=== PATIENT | female | born 1950 | race Hispanic/Latino ===

== ENCOUNTER 2016-10-29 23:43 | Inpatient (IN) | payer MEDICARE, OTHER ==
[2016-10-29 23:44] VITALS: BMI 52.1
[2016-10-30] MEDS ORDERED: Sodium Chloride 0.9% 1,000 ML IV ONE (00:54)
[2016-10-30] MEDS ORDERED: cefTRIAXone IV 1 gm in Dextros 50 ML IVPB ONE ×2 (00:54→01:18)
[2016-10-30 01:13] LABS: BASO % 0.5 % (0.0-2.0); MEAN PLATELET VOLUME 7.4 fL (7.2-11.7); MONO # 0.9 K/uL (0.0-0.8); RED CELL DISTRIBUTION WIDTH 13.4 % (11.5-14.5)
[2016-10-30 01:14] LABS: CHLORIDE 97 mmol/L (98-107)
[2016-10-30 01:15] LABS: SODIUM 134 mmol/L (132-148)
[2016-10-30 01:16] LABS: POTASSIUM 4.6 mmol/L (3.6-5.2)
[2016-10-30 01:17] LABS: BASO # 0.1 K/uL (0.0-0.2); EOS # 0.1 K/uL (0.0-0.7); EOS % 1.3 % (0.0-4.0); LYMPH # 2.8 K/uL (1.0-4.3); LYMPH % 28.7 % (20.0-40.0); MEAN CELL VOLUME 87.7 fL (81.0-99.0); MEAN CORPUSCULAR HEMOGLOBIN 29.8 pg (27.0-31.0); MONO % 9.3 % (0.0-10.0); NRBC % 0.2 % (0.0-2.0)
[2016-10-30 01:18] LABS: ALB/GLOB RATIO 0.9 (1.0-2.1); ALKALINE PHOSPHATASE 94 U/L (38-126); ALT/SGPT 25 U/L (9-52); AST/SGOT 21 U/L (14-36); BILIRUBIN,TOTAL 0.8 mg/dL (0.2-1.3); BLOOD UREA NITROGEN 41 mg/dL (7-17); CARBON DIOXIDE 22 mmol/L (22-30); GFR AFRICAN-AMERICAN > 60; GLUCOSE,RANDOM 195 mg/dL (65-105); TOTAL PROTEIN 6.8 g/dL (6.3-8.3)
[2016-10-30] MEDS ORDERED: Sodium Chloride 0.9% 1,000 ML ONE (01:18)
[2016-10-30 01:19] LABS: CALCIUM 8.3 mg/dl (8.6-10.4)
[2016-10-30 01:21] LABS: WHITE BLOOD COUNT 9.9 K/uL (4.8-10.8)
--- NOTE | 2016-10-30 01:37 | C.PDOC ---
History Of Present Illness 66 year old female presents to the ED with complaints of swelling and pain to the right lower extremity. Patient notes a history of cellulitis and denies fever or other complaints at this time. Chief Complaint (Nursing): Lower Extremity Problem/Injury History Per: Patient History/Exam Limitations: no limitations Onset/Duration Of Symptoms: Unknown Current Symptoms Are (Timing): Still Present Recent travel outside of the [place]: No Past Medical History Reviewed: Historical Data, Nursing Documentation, Vital Signs Vital Signs: Last Vital Signs Temp 97.6 F 10/29/16 23:59 Pulse 76 10/29/16 23:59 Resp 18 10/29/16 23:59 BP 121/76 10/29/16 23:59 Pulse Ox 96 10/30/16 01:41 - Medical History PMH: Diabetes, HTN, Hypercholesterolemia, Peripheral Edema (PT STATES LYMPH EDEMA BOTH LEGS) - [facility] Procedures CORONAR ARTERIOGR-2 CATH (03/31/14) LEFT HEART CARDIAC CATH (03/31/14) LT HEART ANGIOCARDIOGRAM (03/31/14) Family History: States: Unknown Family Hx - Social History Hx Tobacco Use: No Hx Alcohol Use: No - Immunization History Hx Tetanus Toxoid Vaccination: No Hx Influenza Vaccination: No Hx Pneumococcal Vaccination: No Review Of Systems Constitutional: Negative for: Fever, Chills Cardiovascular: Negative for: Chest Pain Respiratory: Negative for: Shortness of Breath Gastrointestinal: Negative for: Nausea, Vomiting, Abdominal Pain Musculoskeletal: Positive for: Leg Pain (swelling and pain to right lower extremity ) Physical Exam - Physical Exam Appears: Non-toxic, No Acute Distress Skin: Warm, Dry Head: Atraumatic Eye(s): bilateral: Normal Inspection, PERRL, EOMI Oral Mucosa: Moist Neck: Supple Chest: Symmetrical, No Deformity Cardiovascular: Rhythm Regular Respiratory: Normal Breath Sounds, No Rhonchi, No Wheezing Extremity: Tenderness (right leg tender to palpation ), Swelling (right leg swelling ) Neurological/Psych: Oriented x3 ED Course And Treatment - Laboratory Results Result Diagrams: 10/30/16 01:06 10/30/16 01:06 O2 Sat by Pulse Oximetry: 96 (room air ) Disposition Discussed With : Samanta Barrera Doctor Will See Patient In The: Hospital Counseled Patient/Family Regarding: Diagnosis - Disposition Disposition: HOSPITALIZED Disposition Time: 02:36 Condition: STABLE Forms: [facility] ([facility]) - Clinical Impression Clinical Impression: Cellulitis of right lower leg - Scribe Statement The provider has reviewed the documentation as recorded by the Scribe Monica Munson All medical record entries made by the Scribe were at my direction and personally dictated by me. I have reviewed the chart and agree that the record accurately reflects my personal performance of the history, physical exam, medical decision making, and the department course for this patient. I have also personally directed, reviewed, and agree with the discharge instructions and disposition.
[2016-10-30] MEDS ORDERED: Oxycodone/Acetaminophen 5/325 mg Tab PO PRN (02:43)
[2016-10-30] MEDS ORDERED: Piperacillin/Tazobact 3.375 gm 100 ML IVPB ONE (02:54)
[2016-10-30] MEDS: Piperacillin/Tazobact 3.375 GM in Sodium Chloride 100 ML IVPB SCH ×3 (02:55→18:50)
[2016-10-30 07:38] LABS: BASO # 0.1 K/uL (0.0-0.2); BASO % 0.7 % (0.0-2.0); EOS # 0.1 K/uL (0.0-0.7); EOS % 1.7 % (0.0-4.0); HEMATOCRIT 31.4 % (34.0-47.0); LYMPH # 2.4 K/uL (1.0-4.3); MEAN CELL VOLUME 87.1 fL (81.0-99.0); MEAN CORPUSCULAR HEMOGLOBIN 29.8 pg (27.0-31.0); MEAN CORPUSCULAR HGB CONC 34.2 g/dL (33.0-37.0); MEAN PLATELET VOLUME 7.2 fL (7.2-11.7); MONO # 0.8 K/uL (0.0-0.8); MONO % 10.3 % (0.0-10.0); RED CELL DISTRIBUTION WIDTH 13.4 % (11.5-14.5); WHITE BLOOD COUNT 8.1 K/uL (4.8-10.8)
[2016-10-30 08:00] LABS: CHLORIDE 100 mmol/L (98-107)
[2016-10-30 08:01] LABS: POTASSIUM 3.8 mmol/L (3.6-5.2); SODIUM 139 mmol/L (132-148)
[2016-10-30 08:03] LABS: ALKALINE PHOSPHATASE 79 U/L (38-126); ALT/SGPT 26 U/L (9-52); AST/SGOT 19 U/L (14-36); BILIRUBIN,TOTAL 0.8 mg/dL (0.2-1.3); BLOOD UREA NITROGEN 30 mg/dL (7-17); CARBON DIOXIDE 24 mmol/L (22-30); GFR AFRICAN-AMERICAN > 60; GLUCOSE,RANDOM 137 mg/dL (65-105); TOTAL PROTEIN 5.9 g/dL (6.3-8.3)
[2016-10-30 08:04] LABS: ALB/GLOB RATIO 0.8 (1.0-2.1)
[2016-10-30] MEDS: (Novolin R) Insulin Human Regular 100 units/ml vial SC SCH ×4 (08:24→21:54)
[2016-10-30] MEDS ORDERED: DAPAGLIFLOZIN PROPANEDIOL PO SCH (10:00)
[2016-10-30] MEDS: Pantoprazole 40 mg EC Tab PO SCH (10:38)
[2016-10-30] MEDS: FARXIGA 10 MG PO SCH (13:18)
--- NOTE | 2016-10-30 14:52 | CP.PCM.HP ---
History of Present Illness - History of Present Illness History of Present Illness: COMPREHENSIVE HISTORY & PHYSICAL EXAM HPI FEW DAYS PT. IS HAVING WEEPING INFLAMMATION OF R. LOWER EXT NOT RESPONDING TO OUT PT. THERAPY AND ADMITTED FOR FURTHER TREATMENT PT WAS ADMITTED IN 06/10 UNDER SURGERY FOR SAME PROBLEM, BUT SIGNED OUT AMA PAST HIST. DM/HTN CAD WITH SIBLE STENT IN LAD 2015 . STILL HAS 60 % LESION IN 1ST DIAGNOL AND DISTAL CX WITH N. EF PERSONAL HIST: Smoking. N Alcohol. N Allergy N Travel_- . FAMILY HIST : ROS : Constitutional: Negative for weight change, chills, night sweats, fatigue and usage of assist device. Eyes: Negative for redness, swelling, itching, discharge, vision changes, blurry vision, double vision, glaucoma, cataracts, Ears: Negative for hearing loss, ringing, , tinnitus, vertigo Nose: Negative for rhinorrhea, stuffiness, sniffing, itching, postnasal drip, discoloration, nasal congestion and epistaxis. Throat: Negative for throat clearing, sore throat, hoarseness, difficulty swallowing and difficulty speaking. Respiratory: Negative for cough, , sputum production, chest tightness, wheezing, pleuritic chest pain ,daytime somnolence, chronic cough, hemoptysis, snoring at night, Cardiovascular: Negative for chest pain, palpitations, orthopnea, PND, Edema of legs, leg cramps, angina, claudication, , irregular heartbeat, Neurology: Negative for irritability, muscle weakness, numbness and tingling, seizures, tremors, migraines, slurred speech, syncope, memory loss, mood changes , recurrent headaches Gastrointestinal: Negative for difficulty swallowing, diarrhea, constipation, black stools, rectal bleeding, nausea, flatulence, reflux, poor appetite, changes in bowel habits, abdominal pain Genitourinary: Negative for frequent urination, hematuria, discharge, incontinence, urinary retention, frequent UTI, Psychiatric: Negative for depression, anxiety/panic, suicidal tendencies, Musculoskeletal: Negative for swollen joints, back pain, , neck pain, morning stiffness of joints, . Skin: Negative for rash, ulcers, itching, dry skin and pigmented lesions. P/E: Constitutional: Appears stated age and in no apparent distress. Head: Normocephalic. Ears: External ear canals patent without inflammation. Tympanic membranes intact with normal light reflex and landmark. Eyes: Pupils are central, bilaterally equal, symmetrical and reacts to light with normal movements and no icterus or pallor. Nose: External nares are patent. Mucosa is pink Mouth-Throat: Good general appearance and condition. No post-pharyngeal/oropharyngeal erythema and tonsillar hypertrophy. Good dental hygiene. Neck-Lymphatic: Neck is supple with normal ROM, no thyromegaly, lymph nodes or masses. JVD is normal with no carotid bruit. Lungs: Clear to percussion and auscultation with bilateral normal air entry. Cardiovascular: S1 and S2 are normal with no murmurs, gallops and rub. GI Exam: No hepatomegaly. Abdomen is soft and non-tender. No Organomegaly , masses or hernias are evident and bowel sounds are normal and active. Neurology: Higher function and all cranial nerves intact, with no gross motor or sensory deficit. Superficial and deep reflexes are normal with downwards planters. No cerebellar deficit with normal gait. Musculoskeletal: No tender spots with normal curvature of the spine with no swelling or restricted ROM of the small and large joints. Extremities R. LEG SWOLLEN WITH CELLUITIS AND OZING FLUIDS Skin: No rash, eruptions or abnormal skin pigmentation LAB/RADIOLOGY: ASSESMENT : R. LEG RECURRENT CELLULITIS SEC TO DM ? CIRCULATION COMPRAMISED DM PLAN: ID EVAL IV AB Present on Admission - Present on Admission Any Indicators Present on Admission: No Past Patient History - Past Medical History & Family History Past Medical History?: Yes - Past Social History Smoking Status: Never Smoked - CARDIAC Hx Hypercholesterolemia: Yes Hx Hypertension: Yes Hx Peripheral Edema: Yes (PT STATES LYMPH EDEMA BOTH LEGS) - PULMONARY Hx Respiratory Disorders: No - NEUROLOGICAL Hx Neurological Disorder: Yes Hx Syncope: Yes (DUE TO HYPOGLYCEMIA) - HEENT Hx HEENT Problems: No - RENAL Hx Chronic Kidney Disease: No - ENDOCRINE/METABOLIC Hx Endocrine Disorders: Yes Hx Diabetes Mellitus Type 1: Yes - HEMATOLOGICAL/ONCOLOGICAL Hx Blood Disorders: No Hx Blood Transfusions: No - INTEGUMENTARY Hx Dermatological Problems: Yes Other/Comment: LIPOMA RIGHT LEG - MUSCULOSKELETAL/RHEUMATOLOGICAL Hx Falls: No - GASTROINTESTINAL Hx Gastrointestinal Disorders: No - GENITOURINARY/GYNECOLOGICAL Hx Genitourinary Disorders: No - PSYCHIATRIC Hx Psychophysiologic Disorder: No - SURGICAL HISTORY Hx Surgeries: Yes Hx Cardiac Catheterization: Yes (2014) Hx Joint Replacement: Yes (RIGHT KNEE) Other/Comment: gastric sleeve,RIGHT LOWER EXTREMITY (TISSUE REMOVAL PER PT. - ANESTHESIA Hx Anesthesia: Yes Hx Anesthesia Reactions: No Hx Malignant Hyperthermia: No Meds Allergies/Adverse Reactions: Allergies Allergy/AdvReac Type Severity Reaction Status Date / Time No Known Allergies Allergy Verified 05/20/16 08:56 Results - Vital Signs Recent Vital Signs: Last Vital Signs Temp 97.7 F 10/30/16 08:39 Pulse 53 L 10/30/16 08:39 Resp 20 10/30/16 08:39 BP 109/61 10/30/16 08:39 Pulse Ox 95 10/30/16 08:39 - Labs Result Diagrams: 10/30/16 07:15 10/30/16 07:15 Labs: Laboratory Results - last 24 hr 10/30/16 10/30/16 10/30/16 07:15 07:15 07:16 WBC 8.1 RBC 3.60 L Hgb 10.7 L Hct 31.4 L MCV 87.1 MCH 29.8 MCHC 34.2 RDW 13.4 Plt Count 305 MPV 7.2 Neut % (Auto) 57.3 Lymph % (Auto) 30.0 Dillon % (Auto) 10.3 H Eos % (Auto) 1.7 Baso % (Auto) 0.7 Neut # 4.7 Lymph # 2.4 Dillon # 0.8 Eos # 0.1 Baso # 0.1 Sodium 139 Potassium 3.8 Chloride 100 Carbon Dioxide 24 Anion Gap 19 BUN 30 H Creatinine 0.8 Est GFR ( Amer) > 60 Est GFR (Non-Af Amer) > 60 POC Glucose (mg/dL) 140 H Random Glucose 137 H Calcium 8.0 L Total Bilirubin 0.8 AST 19 ALT 26 Alkaline Phosphatase 79 Total Protein 5.9 L Albumin 2.7 L Globulin 3.2 Albumin/Globulin Ratio 0.8 L 10/30/16 11:16 WBC RBC Hgb Hct MCV MCH MCHC RDW Plt Count MPV Neut % (Auto) Lymph % (Auto) Dillon % (Auto) Eos % (Auto) Baso % (Auto) Neut # Lymph # Dillon # Eos # Baso # Sodium Potassium Chloride Carbon Dioxide Anion Gap BUN Creatinine Est GFR ( Amer) Est GFR (Non-Af Amer) POC Glucose (mg/dL) 180 H Random Glucose Calcium Total Bilirubin AST ALT Alkaline Phosphatase Total Protein Albumin Globulin Albumin/Globulin Ratio
[2016-10-30] MEDS: (Lantus) Insulin Glargine, Recombinant SC SCH (21:55)
[2016-10-30] MEDS: Vancomycin 1 gm/NS 200 ml 1 GM/200 ML BAG IVPB SCH (21:56)
[2016-10-31] MEDS: Piperacillin/Tazobact 3.375 GM in Sodium Chloride 100 ML IVPB SCH ×3 (02:13→18:00)
[2016-10-31 07:33] LABS: BASO % 0.5 % (0.0-2.0); EOS # 0.2 K/uL (0.0-0.7); HEMATOCRIT 33.3 % (34.0-47.0); LYMPH # 2.3 K/uL (1.0-4.3); LYMPH % 28.4 % (20.0-40.0); MEAN CORPUSCULAR HEMOGLOBIN 29.7 pg (27.0-31.0); MEAN CORPUSCULAR HGB CONC 33.3 g/dL (33.0-37.0); MEAN PLATELET VOLUME 7.1 fL (7.2-11.7); MONO # 0.6 K/uL (0.0-0.8); MONO % 7.4 % (0.0-10.0); RED CELL DISTRIBUTION WIDTH 13.6 % (11.5-14.5); WHITE BLOOD COUNT 8.1 K/uL (4.8-10.8)
[2016-10-31 07:55] LABS: CHLORIDE 103 mmol/L (98-107)
[2016-10-31 07:56] LABS: SODIUM 140 mmol/L (132-148)
[2016-10-31 07:57] LABS: POTASSIUM 4.3 mmol/L (3.6-5.2)
[2016-10-31 07:59] LABS: ALB/GLOB RATIO 0.9 (1.0-2.1); ALKALINE PHOSPHATASE 77 U/L (38-126); AST/SGOT 16 U/L (14-36); BILIRUBIN,TOTAL 0.8 mg/dL (0.2-1.3); BLOOD UREA NITROGEN 17 mg/dL (7-17); CARBON DIOXIDE 25 mmol/L (22-30); GFR AFRICAN-AMERICAN > 60; TOTAL PROTEIN 5.9 g/dL (6.3-8.3)
[2016-10-31 08:00] LABS: ALT/SGPT 26 U/L (9-52); CALCIUM 8.3 mg/dl (8.6-10.4); GLUCOSE,RANDOM 148 mg/dL (65-105)
[2016-10-31] MEDS: (Novolin R) Insulin Human Regular 100 units/ml vial SC SCH ×4 (08:21→21:52)
[2016-10-31] MEDS: Vancomycin 1 gm/NS 200 ml 1 GM/200 ML BAG IVPB SCH ×2 (08:46→21:00)
[2016-10-31] MEDS: FARXIGA 10 MG PO SCH (09:51)
[2016-10-31] MEDS: Pantoprazole 40 mg EC Tab PO SCH (09:52)
--- NOTE | 2016-10-31 13:19 | CP.PCM.PN ---
Subjective - Date & Time of Evaluation Date of Evaluation: 10/31/16 Time of Evaluation: 13:18 - Subjective Subjective: CHIEF COMPLAINTS TODAY : PAIN LEFT LEG ROS. HEENT : N. Resp : No cough, wheezing ,pleuritic CP ,or hemoptysis Cardio : No anginal CP, PND, orthopnea, palpitation GI : No abd.pain, n/v ,diarrhea or GI bleeding . KEY MAKER : No headache, vertigo, focal deficit. Musculoskel : No joint swelling , Derm : No rash Psych : Normal affect. Ext : LEFT LEG SWOLLEN PE. Pt. is alert awake in no distress. V.S As noted in the chart Head ,ear nose,throat and eyes : Normal. Neck : Supple with normal carotids. Lungs: Clear air entry. Heart : S1 & S2 normal with S4. No murmur. Abd : Soft non tender with normal bowel sounds. Neuro : Moves all ext. with no localized deficit. Ext : SPREADING CELLULITIS LEFT LEG WITH OOZING SERUM Derm : No rashes or decubitus ulcer. LABS/RADIOLOGY: GRAM NEG IN WOUND ASSESSMENT/PLAN : LOCAL WOUND CARE IV AB Objective - Vital Signs/Intake and Output Vital Signs (last 24 hours): Temp Pulse Resp BP Pulse Ox 98.7 F 62 20 128/69 96 10/31/16 08:24 10/31/16 08:24 10/31/16 08:24 10/31/16 08:24 10/31/16 08:24 - Medications Medications: Current Medications Ezetimibe (Zetia) 10 mg PO DAILY [facility] Last Admin: 10/31/16 09:52 Dose: 10 mg Heparin Sodium (Porcine) (Heparin) 5,000 units SC Q12 [facility] Last Admin: 10/31/16 09:52 Dose: 5,000 units Home Med (Patient's Own Medication) 1 tab PO DAILY [facility] Last Admin: 10/31/16 09:51 Dose: 1 tab Piperacillin Sod/Tazobactam (Sod 3.375 gm/ Sodium Chloride) 100 mls @ 200 mls/ hr IVPB Q8H [facility] Last Admin: 10/31/16 11:32 Dose: 200 mls/hr Vancomycin/Sodium Chloride (Vancocin) 1 gm in 200 mls @ 133.333 mls/hr IVPB Q12H [facility] Stop: 11/04/16 21:01 Last Admin: 10/31/16 08:46 Dose: 133.333 mls/hr Insulin Glargine (Lantus) 20 unit SC [facility] Last Admin: 10/30/16 21:55 Dose: 20 unit Insulin Human Regular (Novolin R) 0 unit SC [facility] PRN Reason: Protocol Last Admin: 10/31/16 12:34 Dose: 2 unit Losartan Potassium (Cozaar) 50 mg PO DAILY [facility] Last Admin: 10/31/16 09:52 Dose: 50 mg Oxycodone/Acetaminophen (Percocet 5/325 Mg Tab) 1 tab PO Q4H PRN PRN Reason: Pain, severe (8-10) Stop: 11/02/16 02:44 Pantoprazole Sodium (Protonix Ec Tab) 40 mg PO DAILY [facility] Last Admin: 10/31/16 09:52 Dose: 40 mg Pneumococcal Polyvalent Vaccine (Pneumovax 23 Vaccine) 0.5 ml IM .ONCE ONE Stop: 11/01/16 10:01 Rosuvastatin Calcium (Crestor) 20 mg PO [facility] Last Admin: 10/30/16 21:56 Dose: 20 mg - Labs Labs: 10/31/16 07:07 10/31/16 07:07
--- NOTE | 2016-10-31 16:18 | CP.PCM.CON ---
History of Present Illness - History of Present Illness History of Present Illness: INFECTIOUS DISEASE CONSULTATION; HPI;. 66 year old female presents to the ED with complaints of swelling and pain to the right lower extremity. Patient notes a history of cellulitis and denies fever or other complaints at this time. Pt is s/p Lipoma removal of the Rt leg IN MAY 2016. PATIENT STATES SHE RECENTLY WENT TO [place] FOR VACATION BUT THERE DID NOT FEEL WELL AND HAD SHAKING CHILLS AND HIGH FEVER FOR WHICH SHE TOOK 3 aDVILS AND COVERED HER WITH SHEETS. PATIENT ALSO NOTICED INCREASED REDNESS OF RIGHT LOWER EXTREMITY. SHE STATES SHE USUALLY DOES NOT GET A FEVER. ALSO COMPLAINS OF PAIN IN THE RIGHT LEG ESPECIALLY UPPER CALF. PATIENT STATES SHE HAS CHRONIC LYMPHEDEMA OF BOTH LOWER EXTREMITIES.PATIENT ALSO NOTED SEROUS DISCHARGE FROM THE LOWER LEG. PATIENT WAS APPROPRIATELY CULTURED AND GOT 1 DOSE OF ROCEPHIN 1 G IN THE ER.PATIENT PRESENTLY ON iv zOSYN 3.375 EVERY 8 HOURLY. INFECTIOUS DISEASE CONSULTATION REQUESTED BY pmd FOR RIGHT LOWER EXTREMITY CELLULITIS AND SWELLING. ALLERGY; NO KNOWN ALLERGIES. PMH: Diabetes, HTN, Hypercholesterolemia, Peripheral Edema (PT STATES LYMPH EDEMA BOTH LEGS) - [facility] Procedures CORONAR ARTERIOGR-2 CATH (03/31/14) LEFT HEART CARDIAC CATH (03/31/14) LT HEART ANGIOCARDIOGRAM (03/31/14) Family History: States: Unknown Family Hx - Social History Hx Tobacco Use: No Hx Alcohol Use: No - Immunization History Hx Tetanus Toxoid Vaccination: No Hx Influenza Vaccination: No Hx Pneumococcal Vaccination: No Review of Systems - Constitutional Constitutional: Chills, Fever - EENT Eyes: absent: Change in Vision Nose/Mouth/Throat: absent: Mouth Lesions - Breasts Breasts: absent: Pain - Cardiovascular Cardiovascular: Dyspnea on Exertion. absent: Chest Pain - Respiratory Respiratory: absent: Cough, Hemoptysis - Gastrointestinal Gastrointestinal: absent: Abdominal Pain, Diarrhea, Nausea, Vomiting - Genitourinary Genitourinary: absent: Dysuria, Freq UTI, Hx Renal/Bladder Calculi - Musculoskeletal Musculoskeletal: Radiating Pain into Limb (RT.LL) - Integumentary Integumentary: Erythema (B/L LOWER EXTREMITIES ,RT>LT.), Pruritus, Rash, Swelling - Hematologic/Lymphatic Hematologic: As Per HPI Past Patient History - Past Medical History & Family History Past Medical History?: Yes - Past Social History Smoking Status: Never Smoked - CARDIAC Hx Hypercholesterolemia: Yes Hx Hypertension: Yes Hx Peripheral Edema: Yes (PT STATES LYMPH EDEMA BOTH LEGS) - PULMONARY Hx Respiratory Disorders: No - NEUROLOGICAL Hx Neurological Disorder: Yes Hx Syncope: Yes (DUE TO HYPOGLYCEMIA) - HEENT Hx HEENT Problems: No - RENAL Hx Chronic Kidney Disease: No - ENDOCRINE/METABOLIC Hx Endocrine Disorders: Yes Hx Diabetes Mellitus Type 1: Yes - HEMATOLOGICAL/ONCOLOGICAL Hx Blood Disorders: No Hx Blood Transfusions: No - INTEGUMENTARY Hx Dermatological Problems: Yes Other/Comment: LIPOMA RIGHT LEG - MUSCULOSKELETAL/RHEUMATOLOGICAL Hx Falls: No - GASTROINTESTINAL Hx Gastrointestinal Disorders: No - GENITOURINARY/GYNECOLOGICAL Hx Genitourinary Disorders: No - PSYCHIATRIC Hx Psychophysiologic Disorder: No - SURGICAL HISTORY Hx Surgeries: Yes Hx Cardiac Catheterization: Yes (2014) Hx Joint Replacement: Yes (RIGHT KNEE) Other/Comment: gastric sleeve,RIGHT LOWER EXTREMITY (TISSUE REMOVAL PER PT. - ANESTHESIA Hx Anesthesia: Yes Hx Anesthesia Reactions: No Hx Malignant Hyperthermia: No Meds Allergies/Adverse Reactions: Allergies Allergy/AdvReac Type Severity Reaction Status Date / Time No Known Allergies Allergy Verified 05/20/16 08:56 - Medications Medications: Current Medications Ezetimibe (Zetia) 10 mg PO DAILY [facility] Last Admin: 10/31/16 09:52 Dose: 10 mg Heparin Sodium (Porcine) (Heparin) 5,000 units SC Q12 [facility] Last Admin: 10/31/16 09:52 Dose: 5,000 units Home Med (Patient's Own Medication) 1 tab PO DAILY [facility] Last Admin: 10/31/16 09:51 Dose: 1 tab Piperacillin Sod/Tazobactam (Sod 3.375 gm/ Sodium Chloride) 100 mls @ 200 mls/ hr IVPB Q8H [facility] Last Admin: 10/31/16 11:32 Dose: 200 mls/hr Vancomycin/Sodium Chloride (Vancocin) 1 gm in 200 mls @ 133.333 mls/hr IVPB Q12H [facility] Stop: 11/04/16 21:01 Last Admin: 10/31/16 08:46 Dose: 133.333 mls/hr Insulin Glargine (Lantus) 20 unit SC [facility] Last Admin: 10/30/16 21:55 Dose: 20 unit Insulin Human Regular (Novolin R) 0 unit SC [facility] PRN Reason: Protocol Last Admin: 10/31/16 12:34 Dose: 2 unit Losartan Potassium (Cozaar) 50 mg PO DAILY [facility] Last Admin: 10/31/16 09:52 Dose: 50 mg Oxycodone/Acetaminophen (Percocet 5/325 Mg Tab) 1 tab PO Q4H PRN PRN Reason: Pain, severe (8-10) Stop: 11/02/16 02:44 Pantoprazole Sodium (Protonix Ec Tab) 40 mg PO DAILY [facility] Last Admin: 10/31/16 09:52 Dose: 40 mg Pneumococcal Polyvalent Vaccine (Pneumovax 23 Vaccine) 0.5 ml IM .ONCE ONE Stop: 11/01/16 10:01 Rosuvastatin Calcium (Crestor) 20 mg PO HS [facility] Last Admin: 10/30/16 21:56 Dose: 20 mg Physical Exam - Constitutional Appears: No Acute Distress - Head Exam Head Exam: NORMAL INSPECTION - Eye Exam Eye Exam: EOMI, PERRL - ENT Exam ENT Exam: Normal Oropharynx - Neck Exam Neck exam: Positive for: Normal Inspection - Respiratory Exam Respiratory Exam: Decreased Breath Sounds, Clear to Auscultation Bilateral, NORMAL BREATHING PATTERN - Cardiovascular Exam Cardiovascular Exam: REGULAR RHYTHM, +S1, +S2 - GI/Abdominal Exam GI & Abdominal Exam: Normal Bowel Sounds, Soft. absent: Organomegaly - Extremities Exam Extremities exam: Positive for: pedal edema (3+ RIGHT LOWER EXTREMITY), pedal pulses present (DISTANT.). Negative for: calf tenderness - Neurological Exam Neurological exam: Alert, CN II-XII Intact, Oriented x3, Reflexes Normal - Psychiatric Exam Psychiatric exam: Normal Mood - Skin Skin Exam: Erythema, Normal Color, Rash (BILATERAL LOWER EXTREMITY RIGHT MORE THAN LEFT.), Warm Results - Vital Signs Recent Vital Signs: Last Vital Signs Temp 98.7 F 10/31/16 08:24 Pulse 62 10/31/16 08:24 Resp 20 10/31/16 08:24 BP 128/69 10/31/16 08:24 Pulse Ox 96 10/31/16 08:24 - Labs Result Diagrams: 10/31/16 07:07 10/31/16 07:07 Labs: Laboratory Results - last 24 hr 10/30/16 10/30/16 10/31/16 17:12 21:18 01:54 WBC RBC Hgb Hct MCV MCH MCHC RDW Plt Count MPV Neut % (Auto) Lymph % (Auto) Moody % (Auto) Eos % (Auto) Baso % (Auto) Neut # Lymph # Moody # Eos # Baso # Sodium Potassium Chloride Carbon Dioxide Anion Gap BUN Creatinine Est GFR ( Amer) Est GFR (Non-Af Amer) POC Glucose (mg/dL) 241 H 307 H 229 H Random Glucose Calcium Total Bilirubin AST ALT Alkaline Phosphatase Total Protein Albumin Globulin Albumin/Globulin Ratio 10/31/16 10/31/16 10/31/16 07:02 07:07 07:07 WBC 8.1 RBC 3.74 L Hgb 11.1 Hct 33.3 L MCV 89.0 MCH 29.7 MCHC 33.3 RDW 13.6 Plt Count 348 MPV 7.1 L Neut % (Auto) 61.7 Lymph % (Auto) 28.4 Moody % (Auto) 7.4 Eos % (Auto) 2.0 Baso % (Auto) 0.5 Neut # 5.0 Lymph # 2.3 Moody # 0.6 Eos # 0.2 Baso # 0.0 Sodium 140 Potassium 4.3 Chloride 103 Carbon Dioxide 25 Anion Gap 17 BUN 17 Creatinine 0.8 Est GFR ( Amer) > 60 Est GFR (Non-Af Amer) > 60 POC Glucose (mg/dL) 143 H Random Glucose 148 H Calcium 8.3 L Total Bilirubin 0.8 AST 16 ALT 26 Alkaline Phosphatase 77 Total Protein 5.9 L Albumin 2.8 L Globulin 3.1 Albumin/Globulin Ratio 0.9 L 10/31/16 11:34 WBC RBC Hgb Hct MCV MCH MCHC RDW Plt Count MPV Neut % (Auto) Lymph % (Auto) Moody % (Auto) Eos % (Auto) Baso % (Auto) Neut # Lymph # Moody # Eos # Baso # Sodium Potassium Chloride Carbon Dioxide Anion Gap BUN Creatinine Est GFR ( Amer) Est GFR (Non-Af Amer) POC Glucose (mg/dL) 195 H Random Glucose Calcium Total Bilirubin AST ALT Alkaline Phosphatase Total Protein Albumin Globulin Albumin/Globulin Ratio Assessment & Plan (1) Cellulitis of right lower leg Assessment and Plan: wound cultures- GPC. CONTINUE iv zOSYN 3.375 Q 8 HOURLY 10/31/16. CONTINUE iv VANCOMYCIN 1 G EVERY 12 HOURLY ADDED ON 10/31/16. fOLLOW-UP vANCO TROUGH LEVELS PRIOR TO THE FOURTH DOSE AND MAINTAINED BETWEEN 10 AND 20. fOLLOW-UP CULTURES TO ADJUST ANTIBIOTICS. ESR, CRP. LOCAL WOUND CARE PER WOUND CARE CONSULT. Status: Acute (2) Post-op pain Assessment and Plan: S/P REMOVAL RIGHT LEG LIPOMA 06/10. WOUND WELL HEALED. Status: Acute (3) Right leg swelling Status: Acute Priority: Medium (4) Lymphedema of both lower extremities Assessment and Plan: HISTORY OF CHRONIC LYMPHEDEMA WITH SUPERIMPOSED CELLULITIS RIGHT LOWER LEG. fOLLOW-UP WOUND CULTURES FOR SOFT TISSUE SKIN INFECTIONS. cONTINUE ANTIBIOTICS ORDERED. Status: Acute
[2016-10-31] MEDS: (Lantus) Insulin Glargine, Recombinant SC SCH (21:57)
[2016-11-01] MEDS: Piperacillin/Tazobact 3.375 GM in Sodium Chloride 100 ML IVPB SCH ×3 (02:28→18:24)
[2016-11-01 07:25] LABS: BASO # 0.1 K/uL (0.0-0.2); BASO % 0.6 % (0.0-2.0); EOS # 0.2 K/uL (0.0-0.7); EOS % 2.6 % (0.0-4.0); LYMPH # 2.7 K/uL (1.0-4.3); LYMPH % 32.4 % (20.0-40.0); MEAN CELL VOLUME 89.1 fL (81.0-99.0); MEAN CORPUSCULAR HEMOGLOBIN 29.2 pg (27.0-31.0); MEAN CORPUSCULAR HGB CONC 32.8 g/dL (33.0-37.0); MEAN PLATELET VOLUME 6.7 fL (7.2-11.7); MONO # 0.7 K/uL (0.0-0.8); MONO % 7.9 % (0.0-10.0); RED CELL DISTRIBUTION WIDTH 13.5 % (11.5-14.5); WHITE BLOOD COUNT 8.3 K/uL (4.8-10.8)
[2016-11-01] MEDS: (Novolin R) Insulin Human Regular 100 units/ml vial SC SCH ×4 (07:30→21:29)
[2016-11-01 08:26] LABS: CHLORIDE 104 mmol/L (98-107); SODIUM 141 mmol/L (132-148)
[2016-11-01 08:29] LABS: ALB/GLOB RATIO 0.9 (1.0-2.1); ALKALINE PHOSPHATASE 75 U/L (38-126); ALT/SGPT 25 U/L (9-52); AST/SGOT 13 U/L (14-36); BILIRUBIN,TOTAL 0.6 mg/dL (0.2-1.3); BLOOD UREA NITROGEN 11 mg/dL (7-17); CARBON DIOXIDE 23 mmol/L (22-30); GFR AFRICAN-AMERICAN > 60; GLUCOSE,RANDOM 125 mg/dL (65-105); TOTAL PROTEIN 5.7 g/dL (6.3-8.3)
[2016-11-01] MEDS: Vancomycin 1 gm/NS 200 ml 1 GM/200 ML BAG IVPB SCH ×2 (09:06→21:37)
[2016-11-01] MEDS: FARXIGA 10 MG PO SCH (09:14)
[2016-11-01] MEDS: Pantoprazole 40 mg EC Tab PO SCH (09:14)
[2016-11-01] MEDS ORDERED: Pneumococcal 23-Valent Vaccine IM ONE (10:00)
--- NOTE | 2016-11-01 14:08 | CP.PCM.PN ---
Subjective - Date & Time of Evaluation Date of Evaluation: 11/01/16 Time of Evaluation: 14:07 - Subjective Subjective: CHIEF COMPLAINTS TODAY : PAIN LEFT LEG ROS. HEENT : N. Resp : No cough, wheezing ,pleuritic CP ,or hemoptysis Cardio : No anginal CP, PND, orthopnea, palpitation GI : No abd.pain, n/v ,diarrhea or GI bleeding . SEISMIC SURVEY ASSISTANT : No headache, vertigo, focal deficit. Musculoskel : No joint swelling , Derm : No rash Psych : Normal affect. Ext : LEFT LEG SWOLLEN PE. Pt. is alert awake in no distress. V.S As noted in the chart Head ,ear nose,throat and eyes : Normal. Neck : Supple with normal carotids. Lungs: Clear air entry. Heart : S1 & S2 normal with S4. No murmur. Abd : Soft non tender with normal bowel sounds. Neuro : Moves all ext. with no localized deficit. Ext : SPREADING CELLULITIS LEFT LEG WITH OOZING SERUM Derm : No rashes or decubitus ulcer. LABS/RADIOLOGY: GRAM NEG IN WOUND , MRSA/STREPT GRP B ASSESSMENT/PLAN : LOCAL WOUND CARE IV AB Objective - Vital Signs/Intake and Output Vital Signs (last 24 hours): Temp Pulse Resp BP Pulse Ox 98.0 F 70 20 130/75 97 11/01/16 08:00 11/01/16 08:00 11/01/16 08:00 11/01/16 08:00 11/01/16 08:00 Intake and Output: 11/01/16 11/01/16 11:59 23:59 Intake Total 340 Balance 340 - Medications Medications: Current Medications Ezetimibe (Zetia) 10 mg PO DAILY [facility] Last Admin: 11/01/16 09:15 Dose: 10 mg Heparin Sodium (Porcine) (Heparin) 5,000 units SC Q12 [facility] Last Admin: 11/01/16 09:16 Dose: 5,000 units Home Med (Patient's Own Medication) 1 tab PO DAILY [facility] Last Admin: 11/01/16 09:14 Dose: 1 tab Piperacillin Sod/Tazobactam (Sod 3.375 gm/ Sodium Chloride) 100 mls @ 200 mls/ hr IVPB Q8H [facility] Last Admin: 11/01/16 10:45 Dose: Not Given Vancomycin/Sodium Chloride (Vancocin) 1 gm in 200 mls @ 133.333 mls/hr IVPB Q12H [facility] Stop: 11/04/16 21:01 Last Admin: 11/01/16 09:06 Dose: 133.333 mls/hr Insulin Glargine (Lantus) 20 unit SC [facility] Last Admin: 10/31/16 21:57 Dose: 20 unit Insulin Human Regular (Novolin R) 0 unit SC [facility] PRN Reason: Protocol Last Admin: 11/01/16 11:30 Dose: Not Given Losartan Potassium (Cozaar) 50 mg PO DAILY [facility] Last Admin: 11/01/16 09:14 Dose: 50 mg Oxycodone/Acetaminophen (Percocet 5/325 Mg Tab) 1 tab PO Q4H [facility]N PRN Reason: Pain, severe (8-10) Stop: 11/02/16 02:44 Pantoprazole Sodium (Protonix Ec Tab) 40 mg PO DAILY [facility] Last Admin: 11/01/16 09:14 Dose: 40 mg Rosuvastatin Calcium (Crestor) 20 mg PO [facility] Last Admin: 10/31/16 21:51 Dose: 20 mg - Labs Labs: 11/01/16 07:10 11/01/16 07:10
--- NOTE | 2016-11-01 16:23 | CP.PCM.PN ---
Subjective - Date & Time of Evaluation Date of Evaluation: 11/01/16 Time of Evaluation: 16:23 - Subjective Subjective: CHIEF COMPLAINTS TODAY : afebrile c/o pain right lower extremity. Extensive cellulitis right lower leg. Left leg also swollen and red ROS. HEENT : N. Resp : No cough, wheezing ,pleuritic CP ,or hemoptysis Cardio : No anginal CP, PND, orthopnea, palpitation GI : No abd.pain, n/v ,diarrhea or GI bleeding . 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 Musculoskel : No joint swelling , Derm : No rash Psych : Normal affect. Ext : RT L. LEG SWOLLEN /ERYTHEMATOUS surgical scar well-healed. PE. Pt. is alert awake in no distress. V.S As noted in the chart Head ,ear nose,throat and eyes : Normal. Neck : Supple with normal carotids. Lungs: Clear air entry. Heart : S1 & S2 normal with S4. No murmur. Abd : Soft non tender with normal bowel sounds. Neuro : Moves all ext. with no localized deficit. Ext : SPREADING CELLULITIS RT L EXTREMITY WITH OOZING AND DEVELOPING ABSCESS. scar previous surgery well-healed. Left lower extremity also with erythema and cellulitis/edema. Derm : No rashes or decubitus ulcer. LABS/RADIOLOGY: D-DIMER 928 HIGH ? INFECTION /DVT WOUND CULTURE RIGHT LOWER EXTREMITY- MRSA/STREPT GRP B vANCO TROUGH 16.7 OKAY cREATININE 0.7/bun 11 ASSESSMENT: RIGHT LOWER EXTREMITY CELLULITIS/? DEVELOPING ABSCESS/STSI. R/O DVT BILATERAL LYMPHEDEMA LOWER EXTREMITIES. MORBID OBESITY. diabetes mellitus. s/p lipoma removal right leg. 06/10 PLAN; PATIENT ON iv zOSYN 3.375 EVERY 8 HOURLY oN iv VANCOMYCIN 1 G EVERY 12 HOURLY. sURGICAL CONSULT WITH DR. Hester. VENOUS DUPLEX RIGHT LOWER EXTREMITY. CASE DISCUSSED WITH THE STAFF/pmd. Objective - Vital Signs/Intake and Output Vital Signs (last 24 hours): Temp Pulse Resp BP Pulse Ox 98.0 F 70 20 130/75 97 11/01/16 08:00 11/01/16 08:00 11/01/16 08:00 11/01/16 08:00 11/01/16 08:00 Intake and Output: 11/01/16 11/01/16 06:59 18:59 Intake Total 640 820 Balance 640 820 - Medications Medications: Current Medications Ezetimibe (Zetia) 10 mg PO DAILY [facility] Last Admin: 11/01/16 09:15 Dose: 10 mg Heparin Sodium (Porcine) (Heparin) 5,000 units SC Q12 [facility] Last Admin: 11/01/16 09:16 Dose: 5,000 units Home Med (Patient's Own Medication) 1 tab PO DAILY [facility] Last Admin: 11/01/16 09:14 Dose: 1 tab Piperacillin Sod/Tazobactam (Sod 3.375 gm/ Sodium Chloride) 100 mls @ 200 mls/ hr IVPB Q8H [facility] Last Admin: 11/01/16 10:45 Dose: Not Given Vancomycin/Sodium Chloride (Vancocin) 1 gm in 200 mls @ 133.333 mls/hr IVPB Q12H [facility] Stop: 11/04/16 21:01 Last Admin: 11/01/16 09:06 Dose: 133.333 mls/hr Insulin Glargine (Lantus) 20 unit SC [facility] Last Admin: 10/31/16 21:57 Dose: 20 unit Insulin Human Regular (Novolin R) 0 unit SC ACHS [facility] PRN Reason: Protocol Last Admin: 11/01/16 11:30 Dose: Not Given Losartan Potassium (Cozaar) 50 mg PO DAILY [facility] Last Admin: 11/01/16 09:14 Dose: 50 mg Oxycodone/Acetaminophen (Percocet 5/325 Mg Tab) 1 tab PO Q4H PRN PRN Reason: Pain, severe (8-10) Stop: 11/02/16 02:44 Pantoprazole Sodium (Protonix Ec Tab) 40 mg PO DAILY [facility] Last Admin: 11/01/16 09:14 Dose: 40 mg Rosuvastatin Calcium (Crestor) 20 mg PO HS [facility] Last Admin: 10/31/16 21:51 Dose: 20 mg - Labs Labs: 11/01/16 07:10 11/01/16 07:10 Assessment and Plan (1) Cellulitis of right lower leg Status: Acute (2) Post-op pain Status: Acute (3) Right leg swelling Status: Acute (4) Lymphedema of both lower extremities Status: Acute (5) Diabetes mellitus Status: Acute
--- NOTE | 2016-11-01 17:10 | CP.PCM.CON ---
History of Present Illness - History of Present Illness History of Present Illness: Gen Surg: Dr Hein 66F known to service w/ PMHx DM, HTN, CAD presented to the ED w/ RLE swelling and erythema. He brought his mother in because she began to develop redness and swelling of her left lower extremity. Patient notes a history of cellulitis. Denies current fevers, sob, chest pain, nausea or vomiting. Wound currently draining purulent fluid at two locations medial to the tibia. + MRSA PMH: DM, HTN, CAD PSH: Cardiac Stent, Lipoma removal of Right leg, Gastric Sleeve ?? ALL: NKDA Review of Systems - Review of Systems All systems: reviewed and no additional remarkable complaints except Past Patient History - Past Medical History & Family History Past Medical History?: Yes - Past Social History Smoking Status: Never Smoked - CARDIAC Hx Hypercholesterolemia: Yes Hx Hypertension: Yes Hx Peripheral Edema: Yes (PT STATES LYMPH EDEMA BOTH LEGS) - PULMONARY Hx Respiratory Disorders: No - NEUROLOGICAL Hx Neurological Disorder: Yes Hx Syncope: Yes (DUE TO HYPOGLYCEMIA) - HEENT Hx HEENT Problems: No - RENAL Hx Chronic Kidney Disease: No - ENDOCRINE/METABOLIC Hx Endocrine Disorders: Yes Hx Diabetes Mellitus Type 1: Yes - HEMATOLOGICAL/ONCOLOGICAL Hx Blood Disorders: No Hx Blood Transfusions: No - INTEGUMENTARY Hx Dermatological Problems: Yes Other/Comment: LIPOMA RIGHT LEG - MUSCULOSKELETAL/RHEUMATOLOGICAL Hx Falls: No - GASTROINTESTINAL Hx Gastrointestinal Disorders: No - GENITOURINARY/GYNECOLOGICAL Hx Genitourinary Disorders: No - PSYCHIATRIC Hx Psychophysiologic Disorder: No - SURGICAL HISTORY Hx Surgeries: Yes Hx Cardiac Catheterization: Yes (2014) Hx Joint Replacement: Yes (RIGHT KNEE) Other/Comment: gastric sleeve,RIGHT LOWER EXTREMITY (TISSUE REMOVAL PER PT. - ANESTHESIA Hx Anesthesia: Yes Hx Anesthesia Reactions: No Hx Malignant Hyperthermia: No Meds Allergies/Adverse Reactions: Allergies Allergy/AdvReac Type Severity Reaction Status Date / Time No Known Allergies Allergy Verified 05/20/16 08:56 - Medications Medications: Current Medications Ezetimibe (Zetia) 10 mg PO DAILY [facility] Last Admin: 11/01/16 09:15 Dose: 10 mg Heparin Sodium (Porcine) (Heparin) 5,000 units SC Q12 [facility] Last Admin: 11/01/16 09:16 Dose: 5,000 units Home Med (Patient's Own Medication) 1 tab PO DAILY [facility] Last Admin: 11/01/16 09:14 Dose: 1 tab Piperacillin Sod/Tazobactam (Sod 3.375 gm/ Sodium Chloride) 100 mls @ 200 mls/ hr IVPB Q8H [facility] Last Admin: 11/01/16 10:45 Dose: Not Given Vancomycin/Sodium Chloride (Vancocin) 1 gm in 200 mls @ 133.333 mls/hr IVPB Q12H [facility] Stop: 11/04/16 21:01 Last Admin: 11/01/16 09:06 Dose: 133.333 mls/hr Insulin Glargine (Lantus) 20 unit SC [facility] Last Admin: 10/31/16 21:57 Dose: 20 unit Insulin Human Regular (Novolin R) [address] [facility] PRN Reason: Protocol Last Admin: 11/01/16 11:30 Dose: Not Given Losartan Potassium (Cozaar) 50 mg PO DAILY [facility] Last Admin: 11/01/16 09:14 Dose: 50 mg Oxycodone/Acetaminophen (Percocet 5/325 Mg Tab) 1 tab PO Q4H PRN PRN Reason: Pain, severe (8-10) Stop: 11/02/16 02:44 Pantoprazole Sodium (Protonix Ec Tab) 40 mg PO DAILY [facility] Last Admin: 11/01/16 09:14 Dose: 40 mg Rosuvastatin Calcium (Crestor) 20 mg PO [facility] Last Admin: 10/31/16 21:51 Dose: 20 mg Physical Exam - Constitutional Appears: No Acute Distress - Head Exam Head Exam: ATRAUMATIC - Eye Exam Eye Exam: EOMI - ENT Exam ENT Exam: Mucous Membranes Moist - Respiratory Exam Respiratory Exam: NORMAL BREATHING PATTERN. absent: Accessory Muscle Use, Chest Wall Tenderness, Rhonchi, Wheezes - Cardiovascular Exam Cardiovascular Exam: +S1, +S2 - GI/Abdominal Exam GI & Abdominal Exam: Normal Bowel Sounds, Soft. absent: Distended, Firm, Rigid , Tenderness - Extremities Exam Additional comments: RLE erythema distal tibial plateau to foot. Medial side there are two actively open draining wounds. - Neurological Exam Neurological exam: Alert, Oriented x3 - Skin Skin Exam: Erythema Results - Vital Signs Recent Vital Signs: Last Vital Signs Temp 97.4 F L 11/01/16 17:02 Pulse 53 L 11/01/16 17:02 Resp 20 11/01/16 17:02 BP 118/51 L 11/01/16 17:02 Pulse Ox 96 11/01/16 17:02 - Labs Result Diagrams: 11/01/16 07:10 11/01/16 07:10 Labs: Laboratory Results - last 24 hr 10/31/16 11/01/16 11/01/16 21:36 07:05 07:10 WBC 8.3 RBC 3.82 Hgb 11.1 Hct 34.0 MCV 89.1 MCH 29.2 MCHC 32.8 L RDW 13.5 Plt Count 347 MPV 6.7 L Neut % (Auto) 56.5 Lymph % (Auto) 32.4 Talbot % (Auto) 7.9 Eos % (Auto) 2.6 Baso % (Auto) 0.6 Neut # 4.7 Lymph # 2.7 Talbot # 0.7 Eos # 0.2 Baso # 0.1 ESR 77 H D-Dimer, Quantitative Sodium Potassium Chloride Carbon Dioxide Anion Gap BUN Creatinine Est GFR ( Amer) Est GFR (Non-Af Amer) POC Glucose (mg/dL) 169 H 141 H Random Glucose Calcium Total Bilirubin AST ALT Alkaline Phosphatase C-React Prot High Sens Total Protein Albumin Globulin Albumin/Globulin Ratio 11/01/16 11/01/16 11/01/16 07:10 07:10 07:10 WBC RBC Hgb Hct MCV MCH MCHC RDW Plt Count MPV Neut % (Auto) Lymph % (Auto) Talbot % (Auto) Eos % (Auto) Baso % (Auto) Neut # Lymph # Talbot # Eos # Baso # ESR D-Dimer, Quantitative 928 H Sodium 141 Potassium 4.0 Chloride 104 Carbon Dioxide 23 Anion Gap 17 BUN 11 Creatinine 0.7 Est GFR ( Amer) > 60 Est GFR (Non-Af Amer) > 60 POC Glucose (mg/dL) Random Glucose 125 H Calcium 8.0 L Total Bilirubin 0.6 AST 13 L ALT 25 Alkaline Phosphatase 75 C-React Prot High Sens > 15.00 H Total Protein 5.7 L Albumin 2.7 L Globulin 3.0 Albumin/Globulin Ratio 0.9 L 11/01/16 11/01/16 12:23 16:45 WBC RBC Hgb Hct MCV MCH MCHC RDW Plt Count MPV Neut % (Auto) Lymph % (Auto) Talbot % (Auto) Eos % (Auto) Baso % (Auto) Neut # Lymph # Talbot # Eos # Baso # ESR D-Dimer, Quantitative Sodium Potassium Chloride Carbon Dioxide Anion Gap BUN Creatinine Est GFR ( Amer) Est GFR (Non-Af Amer) POC Glucose (mg/dL) 150 H 162 H Random Glucose Calcium Total Bilirubin AST ALT Alkaline Phosphatase C-React Prot High Sens Total Protein Albumin Globulin Albumin/Globulin Ratio Assessment & Plan - Assessment and Plan (Free Text) Assessment: 66F RLE cellulitis poss. abscess Plan: - f/u CT of b/L lower extremity d/w Dr. Melvina Juárez PGY1
[2016-11-01] MEDS: (Lantus) Insulin Glargine, Recombinant SC SCH (21:38)
[2016-11-02] MEDS: Piperacillin/Tazobact 3.375 GM in Sodium Chloride 100 ML IVPB SCH ×3 (03:38→18:45)
[2016-11-02 07:36] LABS: BASO % 0.5 % (0.0-2.0); EOS # 0.2 K/uL (0.0-0.7); EOS % 2.1 % (0.0-4.0); HEMATOCRIT 32.6 % (34.0-47.0); LYMPH # 2.1 K/uL (1.0-4.3); LYMPH % 27.2 % (20.0-40.0); MEAN CELL VOLUME 88.3 fL (81.0-99.0); MEAN CORPUSCULAR HEMOGLOBIN 29.8 pg (27.0-31.0); MEAN CORPUSCULAR HGB CONC 33.8 g/dL (33.0-37.0); MEAN PLATELET VOLUME 6.9 fL (7.2-11.7); MONO # 0.5 K/uL (0.0-0.8); MONO % 6.9 % (0.0-10.0); WHITE BLOOD COUNT 7.8 K/uL (4.8-10.8)
[2016-11-02 07:55] LABS: CHLORIDE 106 mmol/L (98-107); SODIUM 141 mmol/L (132-148)
[2016-11-02 07:57] LABS: AST/SGOT 13 U/L (14-36); BILIRUBIN,TOTAL 0.6 mg/dL (0.2-1.3); CARBON DIOXIDE 25 mmol/L (22-30); GFR AFRICAN-AMERICAN > 60
[2016-11-02 07:58] LABS: ALB/GLOB RATIO 0.9 (1.0-2.1); ALKALINE PHOSPHATASE 71 U/L (38-126); ALT/SGPT 21 U/L (9-52); BLOOD UREA NITROGEN 8 mg/dL (7-17); CALCIUM 8.1 mg/dl (8.6-10.4); GLUCOSE,RANDOM 161 mg/dL (65-105)
--- NOTE | 2016-11-02 09:46 | CP.PCM.PN ---
Subjective - Date & Time of Evaluation Date of Evaluation: 11/02/16 Time of Evaluation: 07:05 - Subjective Subjective: SURGERY NOTE FOR DR. TAYLOR 66F seen and examined at bedside. Patient states the pain in her leg has improved. She is able to ambulate. Objective - Vital Signs/Intake and Output Vital Signs (last 24 hours): Temp Pulse Resp BP Pulse Ox 98.1 F 58 L 20 128/57 L 96 11/01/16 23:09 11/01/16 23:09 11/01/16 23:09 11/01/16 23:09 11/01/16 23:09 Intake and Output: 11/02/16 11/02/16 06:59 18:59 Intake Total 780 Balance 780 - Medications Medications: Current Medications Ezetimibe (Zetia) 10 mg PO DAILY [facility] Last Admin: 11/01/16 09:15 Dose: 10 mg Heparin Sodium (Porcine) (Heparin) 5,000 units SC Q12 [facility] Last Admin: 11/01/16 21:38 Dose: 5,000 units Home Med (Patient's Own Medication) 1 tab PO DAILY [facility] Last Admin: 11/01/16 09:14 Dose: 1 tab Piperacillin Sod/Tazobactam (Sod 3.375 gm/ Sodium Chloride) 100 mls @ 200 mls/ hr IVPB Q8H [facility] Last Admin: 11/02/16 03:38 Dose: 200 mls/hr Vancomycin/Sodium Chloride (Vancocin) 1 gm in 200 mls @ 133.333 mls/hr IVPB Q12H [facility] Stop: 11/04/16 21:01 Last Admin: 11/01/16 21:37 Dose: 133.333 mls/hr Insulin Glargine (Lantus) 20 unit SC [facility] Last Admin: 11/01/16 21:38 Dose: 20 unit Insulin Human Regular (Novolin R) 0 unit SC ACHS [facility] PRN Reason: Protocol Last Admin: 11/01/16 21:29 Dose: Not Given Losartan Potassium (Cozaar) 50 mg PO DAILY [facility] Last Admin: 11/01/16 09:14 Dose: 50 mg Pantoprazole Sodium (Protonix Ec Tab) 40 mg PO DAILY [facility] Last Admin: 11/01/16 09:14 Dose: 40 mg Rosuvastatin Calcium (Crestor) 20 mg PO [facility] Last Admin: 11/01/16 21:37 Dose: 20 mg - Labs Labs: 11/02/16 07:04 11/02/16 07:04 - Constitutional Appears: Non-toxic, No Acute Distress - Head Exam Head Exam: ATRAUMATIC - Respiratory Exam Respiratory Exam: Clear to Ausculation Bilateral, NORMAL BREATHING PATTERN - Cardiovascular Exam Cardiovascular Exam: REGULAR RHYTHM, +S1, +S2 - Extremities Exam Additional comments: RLE erythema distal tibial plateau to foot. Medial side there are two actively open draining wounds. RLE Edema - Neurological Exam Neurological Exam: Alert, Awake Assessment and Plan - Assessment and Plan (Free Text) Assessment: 66F RLE cellulitis poss. abscess Plan: - f/u CT of b/L lower extremity Further recs discuss with Dr. Melvina Gaytan, PGY2
[2016-11-02] MEDS: (Novolin R) Insulin Human Regular 100 units/ml vial SC SCH ×4 (10:01→21:41)
[2016-11-02] MEDS: Pantoprazole 40 mg EC Tab PO SCH (10:02)
[2016-11-02] MEDS: FARXIGA 10 MG PO SCH (10:19)
--- NOTE | 2016-11-02 11:21 | VASCLAB ---
PROCEDURE: Lower Extremity Venous Duplex Exam. HISTORY: Leg pain PRIORS: None. TECHNIQUE: Bilateral common femoral, femoral, popliteal and posterior tibial, peroneal and great saphenous veins were evaluated. Flow was assessed with color Doppler, compressibility, assessment of phasic flow and augmentation response. Report prepared by HALIMA Salas, RVT FINDINGS: RIGHT: 1. Common Femoral Vein: 1.1. Compressibility - Fully compressible: Thrombus - None : Flow - Phasic: Augmentation -Normal: Reflux - None. 2. Femoral Vein: 2.1. Compressibility - Fully compressible: Thrombus - None : Flow - Phasic: Augmentation -Normal: Reflux - None. 3. Popliteal Vein: 3.1. Compressibility - Fully compressible: Thrombus - None : Flow - Phasic: Augmentation -Normal: Reflux - None. 4. Posterior Tibial Vein: 4.1. Unable to image 5. Peroneal Vein: 5.1. Unable to image 6. Great Saphenous Vein: 6.1. Compressibility - Fully compressible: Thrombus - None: Flow - Phasic: Augmentation - Normal: Reflux - None. LEFT: 1. Common Femoral Vein: 1.1. Compressibility - Fully compressible: Thrombus - None: Flow - Phasic: Augmentation -Normal: Reflux - None. 2. Femoral Vein: 2.1. Compressibility - Fully compressible: Thrombus - None: Flow - Phasic: Augmentation -Normal: Reflux - None. 3. Popliteal Vein: 3.1. Compressibility - Fully compressible: Thrombus - None : Flow - Phasic: Augmentation -Normal: Reflux - None. 4. Posterior Tibial Vein: 4.1. Compressibility - Fully compressible: Thrombus - None: Flow - Phasic: Augmentation -Normal: Reflux - None. 5. Peroneal Vein: 5.1. Compressibility - Fully compressible: Thrombus - None: Flow - Phasic: Augmentation -Normal: Reflux - None. 6. Great Saphenous Vein: 6.1. Compressibility - Fully compressible: Thrombus - None: Flow - Phasic: Augmentation - Normal: Reflux - None. OTHER FINDINGS: Right: None significant. Left: None significant. IMPRESSION: Right: Unable to image the right calf veins, due to open wound. No evidence of deep or superficial vein thrombosis for the remaining veins, in the right lower extremity. Normal valve function noted of the right side. Left: No evidence of deep or superficial vein thrombosis of the left lower extremity. Normal valve function noted of the left side.
[2016-11-02] MEDS ORDERED: Iodixanol 320 MG/ML 100 ML BOTTLE IV ONE (11:24)
[2016-11-02] MEDS: Vancomycin 1 gm/NS 200 ml 1 GM/200 ML BAG IVPB SCH (13:19)
--- NOTE | 2016-11-02 13:49 | CP.PCM.PN ---
Subjective - Date & Time of Evaluation Date of Evaluation: 11/02/16 Time of Evaluation: 13:49 - Subjective Subjective: CHIEF COMPLAINTS TODAY : afebrile c/o less pain right lower extremity. Extensive cellulitis right lower leg with draining seropurulent fluid posteromedially Left leg also swollen and red ROS. HEENT : N. Resp : No cough, wheezing ,pleuritic CP ,or hemoptysis Cardio : No anginal CP, PND, orthopnea, palpitation GI : No abd.pain, n/v ,diarrhea or GI bleeding . 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 Musculoskel : No joint swelling , Derm : No rash Psych : Normal affect. Ext : RT L. LEG SWOLLEN /ERYTHEMATOUS +VE DRAINAGE surgical scar well-healed. PE. Pt. is alert awake in no distress. V.S As noted in the chart Head ,ear nose,throat and eyes : Normal. Neck : Supple with normal carotids. Lungs: Clear air entry. Heart : S1 & S2 normal with S4. No murmur. Abd : Soft non tender with normal bowel sounds. Neuro : Moves all ext. with no localized deficit. Ext : SPREADING CELLULITIS RT L EXTREMITY WITH OOZING AND DEVELOPING ABSCESS. scar previous surgery well-healed. Left lower extremity also with erythema and cellulitis/edema. Derm : No rashes or decubitus ulcer. LABS/RADIOLOGY: CT RIGHT LOWER EXTREMITY WITH CONTRAST-extensive cellulitis right lower extremity predominantly the calf. Ankle and foot but also distal aspect of the thigh and posterior aspect. No focal abscess noted. No osteomyelitis.s/ pTKR. D-DIMER 928 HIGH ? INFECTION /DVT WOUND CULTURE RIGHT LOWER EXTREMITY- MRSA/STREPT GRP B vANCO TROUGH 16.7 OKAY CREATININE 0.7/bun 11 DUPLEX VENOUS -VE FOR DVT B/L LE. ASSESSMENT: RIGHT LOWER EXTREMITY CELLULITIS/ STSI +VE MRSA/STREP GRP B BILATERAL LYMPHEDEMA LOWER EXTREMITIES. MORBID OBESITY. diabetes mellitus. s/p lipoma removal right leg. 06/10 PLAN; PATIENT ON iv ZOSYN 3.375 EVERY 8 HOURLY ON iv VANCOMYCIN 1 G EVERY 12 HOURLY. PT FOR PICC LINE. CONTACT ISOLATION. ,CASE DISCUSSED WITH THE STAFF/ PMD. PATIENT REFUSING REHABILITATION. PATIENT TO GET VANCOMYCIN 1.5 G ONCE A DAY DAILY X 2 WEEKS. dc iv zOSYN ON DISCHARGE. fOLLOW-UP vANCO TROUGH LEVEL WEEKLY AND MAINTAIN BETWEEN 10 AND 20. FOLLOW-UP cbc WITH DIFFERENTIAL WEEKLY AND bmp. Objective - Vital Signs/Intake and Output Vital Signs (last 24 hours): Temp Pulse Resp BP Pulse Ox 98.1 F 58 L 20 128/57 L 96 11/01/16 23:09 11/01/16 23:09 11/01/16 23:09 11/01/16 23:09 11/01/16 23:09 Intake and Output: 11/02/16 11/02/16 06:59 18:59 Intake Total 780 Balance 780 - Medications Medications: Current Medications Ezetimibe (Zetia) 10 mg PO DAILY [facility] Last Admin: 11/02/16 10:19 Dose: 10 mg Heparin Sodium (Porcine) (Heparin) 5,000 units SC Q12 [facility] Last Admin: 11/02/16 10:02 Dose: 5,000 units Home Med (Patient's Own Medication) 1 tab PO DAILY [facility] Last Admin: 11/02/16 10:19 Dose: 1 tab Piperacillin Sod/Tazobactam (Sod 3.375 gm/ Sodium Chloride) 100 mls @ 200 mls/ hr IVPB Q8H [facility] Last Admin: 11/02/16 10:02 Dose: 200 mls/hr Vancomycin/Sodium Chloride (Vancocin) 1 gm in 200 mls @ 133.333 mls/hr IVPB Q12H [facility] Stop: 11/04/16 21:01 Last Admin: 11/02/16 13:19 Dose: 133.333 mls/hr Insulin Glargine (Lantus) 20 unit SC HS [facility] Last Admin: 11/01/16 21:38 Dose: 20 unit Insulin Human Regular (Novolin R) 0 unit SC [facility] PRN Reason: Protocol Last Admin: 11/02/16 13:20 Dose: 2 unit Losartan Potassium (Cozaar) 50 mg PO DAILY [facility] Last Admin: 11/02/16 10:02 Dose: 50 mg Pantoprazole Sodium (Protonix Ec Tab) 40 mg PO DAILY [facility] Last Admin: 11/02/16 10:02 Dose: 40 mg Rosuvastatin Calcium (Crestor) 20 mg PO HS [facility] Last Admin: 11/01/16 21:37 Dose: 20 mg - Labs Labs: 11/02/16 07:04 11/02/16 07:04 Assessment and Plan (1) Cellulitis of right lower leg Status: Acute (2) Post-op pain Status: Acute (3) Right leg swelling Status: Acute (4) Lymphedema of both lower extremities Status: Acute (5) Diabetes mellitus Status: Acute
--- NOTE | 2016-11-02 13:54 | CP.PCM.PN ---
Subjective - Date & Time of Evaluation Date of Evaluation: 11/02/16 Time of Evaluation: 13:52 - Subjective Subjective: CHIEF COMPLAINTS TODAY : PAIN LEFT LEG HR LOW 45-60 , NORMAL BP ROS. HEENT : N. Resp : No cough, wheezing ,pleuritic CP ,or hemoptysis Cardio : No anginal CP, PND, orthopnea, palpitation GI : No abd.pain, n/v ,diarrhea or GI bleeding . 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 Musculoskel : No joint swelling , Derm : No rash Psych : Normal affect. Ext : LEFT LEG SWOLLEN PE. Pt. is alert awake in no distress. V.S As noted in the chart Head ,ear nose,throat and eyes : Normal. Neck : Supple with normal carotids. Lungs: Clear air entry. Heart : S1 & S2 normal with S4. No murmur. Abd : Soft non tender with normal bowel sounds. Neuro : Moves all ext. with no localized deficit. Ext : SPREADING CELLULITIS LEFT LEG WITH OOZING SERUM Derm : No rashes or decubitus ulcer. LABS/RADIOLOGY: GRAM NEG IN WOUND , MRSA/STREPT GRP B ASSESSMENT/PLAN : LOCAL WOUND CARE IV AB SURGERY EVAL NOTED PICC LINE PT. REFUSING DESTINEY Objective - Vital Signs/Intake and Output Vital Signs (last 24 hours): Temp Pulse Resp BP Pulse Ox 98.1 F 58 L 20 128/57 L 96 11/01/16 23:09 11/01/16 23:09 11/01/16 23:09 11/01/16 23:09 11/01/16 23:09 - Medications Medications: Current Medications Ezetimibe (Zetia) 10 mg PO DAILY [facility] Last Admin: 11/02/16 10:19 Dose: 10 mg Heparin Sodium (Porcine) (Heparin) 5,000 units SC Q12 [facility] Last Admin: 11/02/16 10:02 Dose: 5,000 units Home Med (Patient's Own Medication) 1 tab PO DAILY [facility] Last Admin: 11/02/16 10:19 Dose: 1 tab Piperacillin Sod/Tazobactam (Sod 3.375 gm/ Sodium Chloride) 100 mls @ 200 mls/ hr IVPB Q8H [facility] Last Admin: 11/02/16 10:02 Dose: 200 mls/hr Vancomycin/Sodium Chloride (Vancocin) 1 gm in 200 mls @ 133.333 mls/hr IVPB Q12H [facility] Stop: 11/08/16 01:01 Insulin Glargine (Lantus) 20 unit SC [facility] Last Admin: 11/01/16 21:38 Dose: 20 unit Insulin Human Regular (Novolin R) 0 unit SC [facility] PRN Reason: Protocol Last Admin: 11/02/16 13:20 Dose: 2 unit Losartan Potassium (Cozaar) 50 mg PO DAILY [facility] Last Admin: 11/02/16 10:02 Dose: 50 mg Pantoprazole Sodium (Protonix Ec Tab) 40 mg PO DAILY [facility] Last Admin: 11/02/16 10:02 Dose: 40 mg Rosuvastatin Calcium (Crestor) 20 mg PO [facility] Last Admin: 11/01/16 21:37 Dose: 20 mg - Labs Labs: 11/02/16 07:04 11/02/16 07:04
--- NOTE | 2016-11-02 14:22 | CT ---
PROCEDURE: CT of right lower extremity HISTORY: cellulitis COMPARISON: CT left lower extremity included in this examination. TECHNIQUE: 2.5 mm contiguous axial sections were acquired from the iliac crests through the lower extremities including feet and ankles. Sagittal and coronal images were reformatted from the axial scan. The examination was performed with intravenous contrast administration. Contrast administered: 100 mL Visipaque 320 Total exam DLP: 1788.06 FINDINGS: There is extensive cellulitis involving the right lower extremity involving the posterior aspect of the thigh just proximal to the knee and involving the calf circumferentially as well as the ankle and foot. There is no focal collection identified to suggest an abscess. There is no osseous erosion or periosteal reaction appreciated. Please note that the patient is status post right total knee replacement. There is no evidence of prosthesis loosening or periprosthetic infection on this examination. Examination of the pelvis demonstrates diverticulosis of the sigmoid colon without evidence of diverticulitis. The uterus is significant for central low attenuation which may reflect endometrial fluid for thickened endometrium. This is abnormal in a 66-year-old woman. Evaluation with pelvic ultrasound examination including transvaginal examination is advised. There are no adnexal masses. There is no ascites. The urinary bladder is unremarkable. IMPRESSION: Cellulitis of the right lower extremity predominantly involving the calf ankle and foot but also involving the distal aspect of the thigh in its posterior aspect. No evidence of abscess. No evidence of osteomyelitis. Status post total knee replacement. Central low attenuation within the uterus which may reflect endometrial fluid or thickened endometrium. Evaluation with pelvic ultrasound examination is advised. See above.
--- NOTE | 2016-11-02 17:27 | RAD ---
HISTORY: verify right PICC COMPARISON: Chest x-ray performed 05/29/16 TECHNIQUE: Chest, one view. FINDINGS: Examination limited by habitus. Distal tip of the left-sided PICC terminates at the expected location of the cavoatrial junction. LUNGS: No focal consolidation. Please note that chest x-ray has limited sensitivity for the detection of pulmonary masses. PLEURA: No significant pleural effusion identified. No definite pneumothorax . CARDIOVASCULAR: Heart size appears top normal. OSSEOUS STRUCTURES: Degenerative changes. VISUALIZED UPPER ABDOMEN: Unremarkable. OTHER FINDINGS: None. IMPRESSION: Left-sided PICC terminates at the expected location of the cavoatrial junction.
[2016-11-02] MEDS: (Lantus) Insulin Glargine, Recombinant SC SCH (22:39)
[2016-11-03] MEDS: Vancomycin 1 gm/NS 200 ml 1 GM/200 ML BAG IVPB SCH ×2 (00:38→13:54)
[2016-11-03] MEDS: Piperacillin/Tazobact 3.375 GM in Sodium Chloride 100 ML IVPB SCH ×2 (02:24→09:56)
[2016-11-03] MEDS: (Novolin R) Insulin Human Regular 100 units/ml vial SC SCH ×2 (07:30→13:54)
[2016-11-03 07:36] LABS: BASO # 0.1 K/uL (0.0-0.2); BASO % 1.1 % (0.0-2.0); EOS # 0.2 K/uL (0.0-0.7); EOS % 2.4 % (0.0-4.0); HEMATOCRIT 34.7 % (34.0-47.0); LYMPH # 2.3 K/uL (1.0-4.3); MEAN CELL VOLUME 88.4 fL (81.0-99.0); MEAN CORPUSCULAR HEMOGLOBIN 29.9 pg (27.0-31.0); MEAN CORPUSCULAR HGB CONC 33.8 g/dL (33.0-37.0); MEAN PLATELET VOLUME 6.9 fL (7.2-11.7); MONO # 0.5 K/uL (0.0-0.8); MONO % 6.2 % (0.0-10.0); RED CELL DISTRIBUTION WIDTH 13.2 % (11.5-14.5); WHITE BLOOD COUNT 8.5 K/uL (4.8-10.8)
[2016-11-03 07:47] LABS: ALB/GLOB RATIO 0.9 (1.0-2.1); ALKALINE PHOSPHATASE 73 U/L (38-126); ALT/SGPT 23 U/L (9-52); AST/SGOT 18 U/L (14-36); BILIRUBIN,TOTAL 0.5 mg/dL (0.2-1.3); BLOOD UREA NITROGEN 8 mg/dL (7-17); CALCIUM 8.5 mg/dl (8.6-10.4); CARBON DIOXIDE 28 mmol/L (22-30); CHLORIDE 104 mmol/L (98-107); GFR AFRICAN-AMERICAN > 60; GLUCOSE,RANDOM 139 mg/dL (65-105); POTASSIUM 4.3 mmol/L (3.6-5.2); SODIUM 141 mmol/L (132-148); TOTAL PROTEIN 6.4 g/dL (6.3-8.3)
[2016-11-03 08:13] LABS: THYROID STIMULATING HORMONE 2.98 mIU/L (0.46-4.68)
[2016-11-03 09:59] VITALS: O2SAT 98
[2016-11-03] MEDS: FARXIGA 10 MG PO SCH (09:59)
[2016-11-03] MEDS: Pantoprazole 40 mg EC Tab PO SCH (09:59)
--- NOTE | 2016-11-03 13:27 | CP.PCM.PN ---
Subjective - Date & Time of Evaluation Date of Evaluation: 11/03/16 Time of Evaluation: 13:27 - Subjective Subjective: CHIEF COMPLAINTS TODAY : afebrile c/o less pain right lower extremity. Extensive cellulitis right lower leg with draining seropurulent fluid posteromedially Left leg also swollen and red ROS. HEENT : N. Resp : No cough, wheezing ,pleuritic CP ,or hemoptysis Cardio : No anginal CP, PND, orthopnea, palpitation GI : No abd.pain, n/v ,diarrhea or GI bleeding . 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 Musculoskel : No joint swelling , Derm : No rash Psych : Normal affect. Ext : RT L. LEG SWOLLEN /ERYTHEMATOUS +VE DRAINAGE surgical scar well-healed. PE. Pt. is alert awake in no distress. V.S As noted in the chart Head ,ear nose,throat and eyes : Normal. Neck : Supple with normal carotids. Lungs: Clear air entry. Heart : S1 & S2 normal with S4. No murmur. Abd : Soft non tender with normal bowel sounds. Neuro : Moves all ext. with no localized deficit. Ext : SPREADING CELLULITIS RT L EXTREMITY WITH OOZING AND DEVELOPING ABSCESS. scar previous surgery well-healed. Left lower extremity also with erythema and cellulitis/edema. Derm : No rashes or decubitus ulcer. LABS/RADIOLOGY: CT RIGHT LOWER EXTREMITY WITH CONTRAST-extensive cellulitis right lower extremity predominantly the calf. Ankle and foot but also distal aspect of the thigh and posterior aspect. No focal abscess noted. No osteomyelitis.s/ pTKR. D-DIMER 928 HIGH ? INFECTION /DVT WOUND CULTURE RIGHT LOWER EXTREMITY- MRSA/STREPT GRP B vANCO TROUGH 16.7 OKAY CREATININE 0.7/bun 11 DUPLEX VENOUS -VE FOR DVT B/L LE. ASSESSMENT: RIGHT LOWER EXTREMITY CELLULITIS/ STSI +VE MRSA/STREP GRP B BILATERAL LYMPHEDEMA LOWER EXTREMITIES. MORBID OBESITY. diabetes mellitus. s/p lipoma removal right leg. 06/10 PLAN; PATIENT ON iv ZOSYN 3.375 EVERY 8 HOURLY ON iv VANCOMYCIN 1 G EVERY 12 HOURLY. PT S/P PICC LINE. . PATIENT REFUSING REHABILITATION. PATIENT TO GET VANCOMYCIN 1.5 G ONCE A DAY DAILY X 2 WEEKS. dc iv zOSYN ON DISCHARGE. fOLLOW-UP vANCO TROUGH LEVEL WEEKLY AND MAINTAIN BETWEEN 10 AND 20. FOLLOW-UP cbc WITH DIFFERENTIAL WEEKLY AND bmp. PATIENT TO FOLLOW-UP OUTPATIENT 2 WEEKS. Objective - Vital Signs/Intake and Output Vital Signs (last 24 hours): Temp Pulse Resp BP Pulse Ox 98.2 F 56 L 20 125/68 98 11/03/16 09:57 11/03/16 09:57 11/03/16 09:57 11/03/16 09:57 11/03/16 09:57 Intake and Output: 11/03/16 11/03/16 06:59 18:59 Intake Total 580 Balance 580 - Medications Medications: Current Medications Ezetimibe (Zetia) 10 mg PO DAILY [facility] Last Admin: 11/03/16 09:59 Dose: 10 mg Home Med (Patient's Own Medication) 1 tab PO DAILY [facility] Last Admin: 11/03/16 09:59 Dose: 1 tab Piperacillin Sod/Tazobactam (Sod 3.375 gm/ Sodium Chloride) 100 mls @ 200 mls/ hr IVPB Q8H [facility] Last Admin: 11/03/16 09:56 Dose: 200 mls/hr Vancomycin/Sodium Chloride (Vancocin) 1 gm in 200 mls @ 133.333 mls/hr IVPB Q12H [facility] Stop: 11/08/16 01:01 Last Admin: 11/03/16 00:38 Dose: 133.333 mls/hr Insulin Glargine (Lantus) 20 unit SC [facility] Last Admin: 11/02/16 22:39 Dose: 20 unit Insulin Human Regular (Novolin R) 0 unit SC [facility] PRN Reason: Protocol Last Admin: 11/03/16 07:30 Dose: Not Given Losartan Potassium (Cozaar) 50 mg PO DAILY [facility] Last Admin: 11/03/16 10:02 Dose: 50 mg Pantoprazole Sodium (Protonix Ec Tab) 40 mg PO DAILY [facility] Last Admin: 11/03/16 09:59 Dose: 40 mg Rosuvastatin Calcium (Crestor) 20 mg PO [facility] Last Admin: 11/02/16 22:40 Dose: 20 mg - Labs Labs: 11/03/16 07:12 11/03/16 07:12 Assessment and Plan (1) Cellulitis of right lower leg Status: Acute (2) Post-op pain Status: Acute (3) Right leg swelling Status: Acute (4) Lymphedema of both lower extremities Status: Acute (5) Diabetes mellitus Status: Acute
--- NOTE | 2016-11-03 13:54 | CP.PCM.DIS ---
Provider - Provider Date of Admission: 10/30/16 02:39 Attending physician: Samanta Barrera MD Time Spent in preparation of Discharge (in minutes): 30 Hospital Course - Lab Results Lab Results: Micro Results 10/30/16 Unknown Leg - Right Gram Stain - Final 10/30/16 Unknown Leg - Right Wound Culture - Final Methicillin Resistant S Aureus Beta Hemolytic Strep Group B Most Recent Lab Values WBC 8.5 K/uL (4.8-10.8) 11/03/16 07:12 RBC 3.92 Mil/uL (3.80-5.20) 11/03/16 07:12 Hgb 11.7 g/dL (11.0-16.0) 11/03/16 07:12 Hct 34.7 % (34.0-47.0) 11/03/16 07:12 MCV 88.4 fL (81.0-99.0) 11/03/16 07:12 MCH 29.9 pg (27.0-31.0) 11/03/16 07:12 MCHC 33.8 g/dL (33.0-37.0) 11/03/16 07:12 RDW 13.2 % (11.5-14.5) 11/03/16 07:12 Plt Count 382 K/uL (130-400) 11/03/16 07:12 MPV 6.9 fL (7.2-11.7) L 11/03/16 07:12 Neut % (Auto) 63.3 % (50.0-75.0) 11/03/16 07:12 Lymph % (Auto) 27.0 % (20.0-40.0) 11/03/16 07:12 King % (Auto) 6.2 % (0.0-10.0) 11/03/16 07:12 Eos % (Auto) 2.4 % (0.0-4.0) 11/03/16 07:12 Baso % (Auto) 1.1 % (0.0-2.0) 11/03/16 07:12 Neut # 5.4 K/uL (1.8-7.0) 11/03/16 07:12 Lymph # 2.3 K/uL (1.0-4.3) 11/03/16 07:12 King # 0.5 K/uL (0.0-0.8) 11/03/16 07:12 Eos # 0.2 K/uL (0.0-0.7) 11/03/16 07:12 Baso # 0.1 K/uL (0.0-0.2) 11/03/16 07:12 ESR 77 mm/hr (0-20) H 11/01/16 07:10 D-Dimer, Quantitative 928 ng/mlDDU (0-243) H 11/01/16 07:10 Sodium 141 mmol/L (132-148) 11/03/16 07:12 Potassium 4.3 mmol/L (3.6-5.2) 11/03/16 07:12 Chloride 104 mmol/L (98-107) 11/03/16 07:12 Carbon Dioxide 28 mmol/L (22-30) 11/03/16 07:12 Anion Gap 13 (10-20) 11/03/16 07:12 BUN 8 mg/dL (7-17) 11/03/16 07:12 Creatinine 0.8 MG/DL (0.7-1.2) 11/03/16 07:12 Est GFR ( Amer) > 60 11/03/16 07:12 Est GFR (Non-Af Amer) > 60 11/03/16 07:12 POC Glucose (mg/dL) 205 mg/dL (65-110) H 11/03/16 12:13 Random Glucose 139 mg/dL (65-105) H 11/03/16 07:12 Calcium 8.5 mg/dl (8.6-10.4) L 11/03/16 07:12 Total Bilirubin 0.5 mg/dL (0.2-1.3) 11/03/16 07:12 AST 18 U/L (14-36) 11/03/16 07:12 ALT 23 U/L (9-52) 11/03/16 07:12 Alkaline Phosphatase 73 U/L (38-126) 11/03/16 07:12 C-React Prot High Sens > 15.00 mg/L (1.00-3.00) H 11/01/16 07:10 Total Protein 6.4 g/dL (6.3-8.3) 11/03/16 07:12 Albumin 3.1 g/dL (3.5-5.0) L 11/03/16 07:12 Globulin 3.3 gm/dL (2.2-3.9) 11/03/16 07:12 Albumin/Globulin Ratio 0.9 (1.0-2.1) L 11/03/16 07:12 TSH 3rd Generation 2.98 mIU/L (0.46-4.68) 11/03/16 07:12 Vancomycin Trough 20.8 ug/mL (5.0-10.0) H 11/03/16 10:26 - Hospital Course Hospital Course: FEW DAYS PT. IS HAVING WEEPING INFLAMMATION OF R. LOWER EXT NOT RESPONDING TO OUT PT. THERAPY AND ADMITTED FOR FURTHER TREATMENT PT WAS ADMITTED IN 06/10 UNDER SURGERY FOR SAME PROBLEM, BUT SIGNED OUT AMA PAST HIST. DM/HTN CAD WITH SIBLE STENT IN LAD 2015 . STILL HAS 60 % LESION IN 1ST DIAGNOL AND DISTAL CX WITH N. EF ID/SURGERY CONSULTED NO SURGICAL INTERVENTION CT LEG DID NOT SHOW ABSCESS C/S: MRSA AND STREPT GRP B IV AB VANCO GIVEN WITH ROCEPHIN PT REFUSED TO GO TO REHAB AFTER COUNSELLING BY DIFFERENT CARE TEAM PERSONS PT WAS VERY NON RECEPTIVE TO OUR MEDICAL ADVICE PT WILL HAVE IV AB AT HOME AND WOUND CARE Discharge Exam - Head Exam Head Exam: ATRAUMATIC Discharge Plan - Follow Up Plan Condition: STABLE Disposition: HOME/ ROUTINE
--- NOTE | 2016-11-03 14:24 | CP.PCM.PN ---
Subjective - Date & Time of Evaluation Date of Evaluation: 11/03/16 Time of Evaluation: 10:10 - Subjective Subjective: SURGERY NOTE FOR DR. TAYLOR 66F seen and examined at bedside. Patient sitting up states pain is much improved, no acute events overnight. Objective - Vital Signs/Intake and Output Vital Signs (last 24 hours): Temp Pulse Resp BP Pulse Ox 98.2 F 56 L 20 125/68 98 11/03/16 09:57 11/03/16 09:57 11/03/16 09:57 11/03/16 09:57 11/03/16 09:57 Intake and Output: 11/03/16 11/03/16 06:59 18:59 Intake Total 580 Balance 580 - Medications Medications: Current Medications Ezetimibe (Zetia) 10 mg PO DAILY [facility] Last Admin: 11/03/16 09:59 Dose: 10 mg Home Med (Patient's Own Medication) 1 tab PO DAILY [facility] Last Admin: 11/03/16 09:59 Dose: 1 tab Piperacillin Sod/Tazobactam (Sod 3.375 gm/ Sodium Chloride) 100 mls @ 200 mls/ hr IVPB Q8H [facility] Last Admin: 11/03/16 09:56 Dose: 200 mls/hr Vancomycin/Sodium Chloride (Vancocin) 1 gm in 200 mls @ 133.333 mls/hr IVPB Q12H [facility] Stop: 11/08/16 01:01 Last Admin: 11/03/16 13:54 Dose: Not Given Insulin Glargine (Lantus) 20 unit SC [facility] Last Admin: 11/02/16 22:39 Dose: 20 unit Insulin Human Regular (Novolin R) 0 unit SC [facility] PRN Reason: Protocol Last Admin: 11/03/16 13:54 Dose: 3 unit Losartan Potassium (Cozaar) 50 mg PO DAILY [facility] Last Admin: 11/03/16 10:02 Dose: 50 mg Pantoprazole Sodium (Protonix Ec Tab) 40 mg PO DAILY [facility] Last Admin: 11/03/16 09:59 Dose: 40 mg Rosuvastatin Calcium (Crestor) 20 mg PO HS [facility] Last Admin: 11/02/16 22:40 Dose: 20 mg - Labs Labs: 11/03/16 07:12 11/03/16 07:12 - Constitutional Appears: Non-toxic, No Acute Distress - Respiratory Exam Respiratory Exam: Clear to Ausculation Bilateral, NORMAL BREATHING PATTERN - Cardiovascular Exam Cardiovascular Exam: REGULAR RHYTHM, +S1, +S2 - Extremities Exam Additional comments: right lower extremities - erythematous region is improving and swelling as significantly improved - Neurological Exam Neurological Exam: Alert, Awake Assessment and Plan - Assessment and Plan (Free Text) Assessment: 66F with R LE cellulitis CT: cellulitis no signs of abscess Plan: - antibiotics, dressing with ksenia wrapped Discussed with Dr. Melvina Gaytan, PGY2
[2016-11-03 16:09] VITALS: BP 127/50; PULSE 64; RESP 18; TEMP 97.5
--- NOTE | 2016-11-15 00:02 | CARD ---
APPROVED REPORT EKG Measurement Heart [id number] <Conclusion> Sinus bradycardia with 1st degree AV block Otherwise normal ECG
== END 2016-11-03 17:40 | disposition home health service (06) | DRG 638 ==
LOC: C.ER 23:43 → C.3T 10-30 02:39 → C.5T 11-01 11:26
PROVIDERS: ADMIT Internal Medicine Cardiovascular Disease; ATTEND Internal Medicine Cardiovascular Disease
PROC: 02HV33Z Insertion of Infusion Device into Superior Vena Cava, Percutaneous Approach (ICD-10-PCS; principal; 2016-11-02)
DX: E11.628 Type 2 diabetes mellitus with other skin complications (principal); L03.115 Cellulitis of right lower limb; B95.62 Methicillin resistant Staphylococcus aureus infection as the cause of diseases classified elsewhere; Z68.42 Body mass index [BMI] 45.0-49.9, adult; E66.01 Morbid (severe) obesity due to excess calories; I10 Essential (primary) hypertension; B95.1 Streptococcus, group B, as the cause of diseases classified elsewhere; I89.0 Lymphedema, not elsewhere classified; I25.10 Atherosclerotic heart disease of native coronary artery without angina pectoris; E78.00 Pure hypercholesterolemia, unspecified; G89.28 Other chronic postprocedural pain; Z96.651 Presence of right artificial knee joint; Z79.4 Long term (current) use of insulin; Z23 Encounter for immunization; Z87.891 Personal history of nicotine dependence